=== PATIENT | female | born 1940 | race Caucasian/White ===

== ENCOUNTER 2022-09-01 21:10 | Inpatient (IN) | payer OTHER ==
[~2022-09-01] VITALS: Ht 157.5 cm; Wt 54.4 kg
[2022-09-01 21:19] VITALS: BP 133/46
--- NOTE | 2022-09-01 21:20 | NUR ---
PT BROUGHT TO BED 6 VIA VANDANA RICHARDSON
--- NOTE | 2022-09-01 21:30 | NUR ---
82 Y/O F PRESENTS WITH AN MECHANICAL FALL FROM HOME. [facility] STATED PT'S POWER OF ARABIC TEACHER REQUESTED FOR PT TO BE BROUGHT IN. PT DENIES ANY PAIN AT THE MOMENT OR NVD. PT'S GRANDDAUGHTER IS PRESENT UPON ARRIVAL AND STATED THE PT SUFFERS FROM ALZHIEMERS AND IT WORSENS AT NIGHT. PT IS A&OX3, SKIN INTACT, NO WOUNDS. PMH-ALZHIEMERS NKA
[2022-09-01] MEDS ORDERED: ACETAMINOPHEN EXTRA STRENGTH 500 MG TAB PO ONE (22:10)
--- NOTE | 2022-09-01 22:17 | NUR ---
lab at bedside
[2022-09-01 22:32] LABS: BASOPHILS % (AUTO) 0.3 % (0.0-2.0); HEMATOCRIT 33.3 % (36-48); HEMOGLOBIN 11.1 g/dL (12.0-16.0); LYMPHOCYTES # (AUTO) 0.5 K/uL (2.5-16.5); MEAN CORPUSCULAR HEMOGLOBIN 30 pg (27-31); MEAN CORPUSCULAR HGB CONC 33 g/dL (33-37); MEAN CORPUSCULAR VOLUME 88.9 fL (80-94); MONOCYTES # (AUTO) 0.6 K/uL (0.8-1.0); MONOCYTES % (AUTO) 6.2 % (1.7-9.3); NEUTROPHILS # (AUTO) 8.1 K/uL (1.8-7.7); NEUTROPHILS % (AUTO) 88.5 % (42.2-75.2); PLATELET COUNT (AUTO) 167 K/uL (140-450); RED BLOOD CELL COUNT(AUTO) 3.75 MIL/uL (4.20-5.40); RED CELL DISTRIBUTION WIDTH 15.4 % (11.6-13.7); WHITE BLOOD COUNT (AUTO) 9.2 K/uL (4.8-10.8)
--- NOTE | 2022-09-01 22:36 | NUR ---
Xray at bedside
[2022-09-01 22:51] LABS: ALBUMIN 3.9 g/dL (3.4-5.0); ANION GAP 14.8 (8-16); ASPARTATE AMINOTRANSFERASE 18 U/L (15-37); CARBON DIOXIDE 23.4 mmol/L (21-32); CHLORIDE 105 mmol/L (98-107); CREATININE 1.3 mg/dL (0.6-1.3); GLUCOSE 200 mg/dL (74-106); POTASSIUM 4.2 mmol/L (3.5-5.1); SODIUM SERUM 139 mmol/L (136-145); TOTAL BILIRUBIN 0.5 mg/dL (0.0-1.0); UREA NITROGEN, BLOOD 23 mg/dL (7-18)
[2022-09-01] MEDS ORDERED: NACL 0.9% 1,700 ML IV ONE (23:00)
--- NOTE | 2022-09-01 23:33 | NUR ---
UA COLLECTED AND SENT TO LAB
[2022-09-01 23:46] LABS: APPEARANCE,URINE CLEAR (CLEAR); BILIRUBIN,URINE NEGATIVE (NEGATIVE); BLOOD, URINE 2+ (NEGATIVE); COLOR,URINE YELLOW (YELLOW); LEUKOCYTE ESTERASE ,URINE 1+ (NEGATIVE); NITRITE, URINE POSITIVE (NEGATIVE); PH,URINE 5.5 (5.0-9.0); UGLUCOSE TRACE (NEGATIVE)
[2022-09-01 23:58] LABS: RBC,URINE 0-5 /HPF (0-5); WBC,URINE 0-5 /HPF (0-5)
[2022-09-02] MEDS ORDERED: cefTRIAXone 1,000 MG VIAL ONE (00:07)
--- NOTE | 2022-09-02 00:10 | NUR ---
DR. Soto AT BEDSIDE
[2022-09-02] MEDS ORDERED: PRAV20TA5 PO (01:00)
--- NOTE | 2022-09-02 01:01 | NUR ---
SAVANNA COLLECTED AND SENT TO LAB
--- NOTE | 2022-09-02 01:01 | NUR ---
PT AWAITING ADMISSION AND ON LEATHER CRAFTER
[2022-09-02] MEDS ORDERED: POTASSIUM CHLORIDE 10 MEQ TABER PO PRN (01:05)
[2022-09-02] MEDS ORDERED: MAGNESIUM OXIDE 400 MG TAB PO PRN (01:05)
[2022-09-02] MEDS ORDERED: ACETAMINOPHEN 325 MG TAB PO PRN (01:05)
[2022-09-02] MEDS ORDERED: ONDANSETRON 4 MG/2 ML VIAL IVP PRN (01:05)
[2022-09-02] MEDS ORDERED: HYDROcodone/APAP 5/325 MG 1 TAB TAB PO PRN (01:05)
[2022-09-02] MEDS ORDERED: MORPHINE SULFATE 4 MG/ML SYR IVP PRN (01:05)
[2022-09-02] MEDS: NACL 0.9% 1,000 ML IV SCH ×2 (02:19→13:35)
--- NOTE | 2022-09-02 03:00 | NUR ---
PT AMBULATORY TO RESTROOM WITH WHEELCHAIR ASSISTANCE
--- NOTE | 2022-09-02 03:13 | NUR ---
PT BACK TO ROOM AND ON OVEN HEATER
--- NOTE | 2022-09-02 05:40 | NUR ---
pt resting in room and on school bus monitor
--- NOTE | 2022-09-02 06:36 | NUR ---
GRANDDAUGHTER HAS BEEN BEDSIDE UPON ARRIVAL WHO IS ALSO HER CAREGIVER
--- NOTE | 2022-09-02 07:22 | NUR ---
Report recieved from GALLO Monsalve for transfer of care.
--- NOTE | 2022-09-02 07:52 | NUR ---
Patient will be admitted to care of Dr. Thompson. Admited to Telemetry. Will go to room 108A. Belongings list completed. Report to ANDRIA Person.
--- NOTE | 2022-09-02 08:16 | NUR ---
RECIEVED PATIENT FROM ER NURSE.ADMITTED TO BED NO 108 A.VITALS TEMP 97.7/ MA 89/ BP 133/71.SAT 98%.CALL LIGHT WITHIN REACH.ALL SAFETY MEASURES IN PLACE.ON NS 80 ML/HR.POC DISCUSSED.WILL CONTINUE TO MONITOR.
--- NOTE | 2022-09-02 09:09 | NUR ---
PATIENT HAS BEEN SCREENED AND CATEGORIZED MODERATE NUTRITION RISK. PATIENT WILL BE SEEN WITHIN 3-5 DAYS OF ADMISSION. REVIEWED BY DIOR YUSUF RD
[2022-09-02 12:00] VITALS: BP 135/54
[2022-09-02 16:00] VITALS: BP 138/63
--- NOTE | 2022-09-02 17:31 | NUR ---
P.T. NOTES P.T. EVAL COMPLETED; REFER TO EVAL FOR DETAILS.
--- NOTE | 2022-09-02 19:10 | NUR ---
RECEIVED PATIENT LYING ON THE BED, FAMILY AT BEDSIDE, NO SIGNS OF DISTRESS NOTED, NO SIGNS OF PAIN NOTED. IV ACCESS ON LEFT ARM, G22, INTACT, RUNNING NS @80ML/HR. PATIENT ASSISTED TO THE COMMODE. ALL SAFETY MEASURES IN PLACE.
--- NOTE | 2022-09-02 19:30 | NUR ---
ENDORSED THE PATIENT TO CORPORATE TREASURER NURSE FOR CONTINUITY OF CARE.
[2022-09-02 20:00] VITALS: BP 120/49
--- NOTE | 2022-09-02 20:40 | NUR ---
SCHEDULED MEDICATIONS GIVEN ORDERED.
--- NOTE | 2022-09-02 22:31 | NUR ---
TEMP RECHECKED 98.5, PATIENT WAS GIVEN PRN TYLENOL @2038 FOR TEMP OF 100.3. PATIENT IS AWAKE, NO SIGNS OF DISTRESS, NO SIGNS OF PAIN NOTED. CALL LIGHT WITHIN REACH.
[2022-09-03] VITALS: BP 125/60
--- NOTE | 2022-09-03 00:20 | NUR ---
SCHEDULED IV ANTIBIOTIC GIVEN ORDERED.
[2022-09-03] MEDS: NACL 0.9% 1,000 ML IV SCH ×2 (02:05→06:04)
[2022-09-03 04:00] VITALS: BP 132/56
--- NOTE | 2022-09-03 07:21 | NUR ---
ENDORSED PATIENT TO DAY NURSE FOR CONTINUITY OF CARE. NEEDS MET THROUGHOUT THE SHIFT. PATIENT IN STABLE CONDITION.
[2022-09-03 07:29] LABS: BASOPHILS % (AUTO) 0.3 % (0.0-2.0); EOSINOPHILS % (AUTO) 0.1 % (0.0-4.0); HEMATOCRIT 28.7 % (36-48); HEMOGLOBIN 9.7 g/dL (12.0-16.0); LYMPHOCYTES # (AUTO) 0.8 K/uL (2.5-16.5); LYMPHOCYTES % (AUTO) 15.2 % (20.5-51.1); MEAN CORPUSCULAR HEMOGLOBIN 30 pg (27-31); MEAN CORPUSCULAR HGB CONC 34 g/dL (33-37); MEAN CORPUSCULAR VOLUME 88.5 fL (80-94); MONOCYTES # (AUTO) 0.5 K/uL (0.8-1.0); MONOCYTES % (AUTO) 9.7 % (1.7-9.3); NEUTROPHILS # (AUTO) 3.9 K/uL (1.8-7.7); NEUTROPHILS % (AUTO) 74.7 % (42.2-75.2); PLATELET COUNT (AUTO) 126 K/uL (140-450); RED BLOOD CELL COUNT(AUTO) 3.25 MIL/uL (4.20-5.40); RED CELL DISTRIBUTION WIDTH 15.5 % (11.6-13.7); WHITE BLOOD COUNT (AUTO) 5.2 K/uL (4.8-10.8)
--- NOTE | 2022-09-03 07:34 | NUR ---
RECIEVED PATIENT FROM [employer]OUND COATING MACHINE OFFBEARER NURSE.PATIENT IS VERBALLY ACTIVE. NO SIGNS OF DISTRESSS NOTED.CALL LIGHT WITHIN REACH.WILL CONTINUE TO MONITOR.
[2022-09-03 07:46] LABS: CARBON DIOXIDE 21.6 mmol/L (21-32); CHLORIDE 109 mmol/L (98-107); CREATININE 0.9 mg/dL (0.6-1.3); GLUCOSE 90 mg/dL (74-106); POTASSIUM 3.6 mmol/L (3.5-5.1); SODIUM SERUM 139 mmol/L (136-145); UREA NITROGEN, BLOOD 14 mg/dL (7-18)
[2022-09-03] MEDS ORDERED: CALCIUM GLUC 1 GM/50 mL NS BAG 100 ML IV SCH (13:00)
[2022-09-03] MEDS ORDERED: CEPH-588 PO (13:11)
[2022-09-03 15:17] VITALS: BP 132/56
[2022-09-03 15:23] VITALS: BP 132/56
--- NOTE | 2022-09-03 15:39 | NUR ---
DC PLANNING ASSESSMENT COMPLETE PLEASE REFER TO ASSESSMENT FOR DETAILS SAVANAH PTS DAUGHTER REPORTS DC PLAN IS TO RETURN HOME WITH FAMILY PROVIDING TRANSPORTATION, WHEN MEDICALLY STABLE. Addendum: 09/03/22 at 1539 by Gabriela DICK Amended: Links added.
--- NOTE | 2022-09-03 17:30 | NUR ---
DISCHARGED THE PATIENT HOME PER MD ORDERS ID BAND REMOVED,TELEMONITORS REMOVED.IV LINE REMOVED.DISCHARGE INSTRUCTIONS GIVEN .HANDED OVER DISCHARGE PACKETS.
== END 2022-09-03 18:00 | disposition home or self-care (01) | DRG 872 ==
LOC: MED 21:10 → OBSVTOIN 09-02 01:05 → MTU 09-02 01:05 → OBSVTOIN 09-02 16:14 → INTOOBSV 09-02 16:14
PROVIDERS: ADMIT Student in an Organized Health Care Education/Training Program; ATTEND Student in an Organized Health Care Education/Training Program
DX: A41.9 Sepsis, unspecified organism (principal); N39.0 Urinary tract infection, site not specified; E78.5 Hyperlipidemia, unspecified; F03.90 Unspecified dementia, unspecified severity, without behavioral disturbance, psychotic disturbance, mood disturbance, and anxiety; Z20.822 Contact with and (suspected) exposure to COVID-19
CPT/HCPCS: 36415; 71045; 73562; 80048; 80053; 81001; 83605; 85025; 87040; 87081; 87086; 96361; 96365; 97112; 97116; 97530; 99291; J0610; J0696; J1644; J7060; Q0092

== ENCOUNTER 2022-10-06 13:09 | Emergency (ER) | payer OTHER ==
[~2022-10-06] VITALS: Ht 154.9 cm; Wt 54.4 kg
[~2022-10-06 13:09] MED LIST: CEPH-588 PO; PRAV20TA5 PO
[2022-10-06 13:19] VITALS: BP 139/72
--- NOTE | 2022-10-06 13:22 | NUR ---
Patient ambulated to bed 06 accompanied by caregiver
--- NOTE | 2022-10-06 13:46 | NUR ---
Dr. Garcia evaluating patient at bedside
--- NOTE | 2022-10-06 13:48 | NUR ---
82 y/o F BIB self from family for nose abrasion and left forehead hematoma s/p fall 1 hour ago. Per granddaughter, patient experienced unwitnessed fall with unknown LOC. Patient A&Ox1 to name/, reports taking out trash and fell down hitting her face onto concrete. Patient acting appropriately per family. Nose abrasion tender to palpation. Denies blood thinners, head/neck/back pain, blurry vision, dizziness, headache. Abrasion noted to nose and hematoma to left forehead. Bed locked in lowest position, side rails x 1. PMH: dementia, breast cancer, HLD, Alzheimers Meds: pravastatin sodium NKDA
--- NOTE | 2022-10-06 13:54 | NUR ---
Patient ambulated to restroom accompanied by great granddaughter.
--- NOTE | 2022-10-06 13:55 | NUR ---
Patient to CT via [facility]
--- NOTE | 2022-10-06 14:11 | NUR ---
Patient returned to CT. Pt placed onto night monitor. Bed locked in lowest position, side rails x 2 for patient safety. Alfredo rodriguez remains at bedside.
--- NOTE | 2022-10-06 14:20 | NUR ---
Lab at bedside
[2022-10-06 14:26] LABS: APPEARANCE,URINE CLEAR (CLEAR); BILIRUBIN,URINE NEGATIVE (NEGATIVE); BLOOD, URINE 1+ (NEGATIVE); COLOR,URINE YELLOW (YELLOW); LEUKOCYTE ESTERASE ,URINE TRACE (NEGATIVE); NITRITE, URINE NEGATIVE (NEGATIVE); UGLUCOSE NEGATIVE (NEGATIVE)
[2022-10-06 14:45] LABS: BASOPHILS # (AUTO) 0.1 K/uL (0.00-0.22); BASOPHILS % (AUTO) 0.8 % (0.0-2.0); EOSINOPHILS # (AUTO) 0.1 K/uL (0-0.4); EOSINOPHILS % (AUTO) 0.7 % (0.0-4.0); HEMATOCRIT 35.2 % (36-48); HEMOGLOBIN 11.6 g/dL (12.0-16.0); LYMPHOCYTES # (AUTO) 1.8 K/uL (2.5-16.5); LYMPHOCYTES % (AUTO) 23.2 % (20.5-51.1); MEAN CORPUSCULAR HEMOGLOBIN 30 pg (27-31); MEAN CORPUSCULAR HGB CONC 33 g/dL (33-37); MEAN CORPUSCULAR VOLUME 89.5 fL (80-94); MONOCYTES # (AUTO) 0.4 K/uL (0.8-1.0); MONOCYTES % (AUTO) 5.6 % (1.7-9.3); NEUTROPHILS # (AUTO) 5.5 K/uL (1.8-7.7); NEUTROPHILS % (AUTO) 69.7 % (42.2-75.2); PLATELET COUNT (AUTO) 109 K/uL (140-450); RED BLOOD CELL COUNT(AUTO) 3.93 MIL/uL (4.20-5.40); RED CELL DISTRIBUTION WIDTH 15.8 % (11.6-13.7); WHITE BLOOD COUNT (AUTO) 7.9 K/uL (4.8-10.8)
[2022-10-06 15:15] LABS: ALBUMIN 3.5 g/dL (3.4-5.0); ASPARTATE AMINOTRANSFERASE 20 U/L (15-37); CARBON DIOXIDE 25.9 mmol/L (21-32); CHLORIDE 106 mmol/L (98-107); CREATININE 1.3 mg/dL (0.6-1.3); GLUCOSE 127 mg/dL (74-106); POTASSIUM 3.9 mmol/L (3.5-5.1); SODIUM SERUM 142 mmol/L (136-145); TOTAL BILIRUBIN 0.4 mg/dL (0.0-1.0); UREA NITROGEN, BLOOD 19 mg/dL (7-18)
--- NOTE | 2022-10-06 15:25 | NUR ---
Patient resting in semi-fowlers position in position of comfort. residential monitor in place. Respirations even/unlabored, no acute distress noted. Daughter remains at bedside. Bed locked in lowest position, side rails x 1.
--- NOTE | 2022-10-06 15:28 | NUR ---
Dr. Garcia reevaluating patient at bedside
--- NOTE | 2022-10-06 15:35 | NUR ---
Dr. Garcia at bedside for wound irrigation and dermabond application.
[2022-10-06] MEDS ORDERED: CEPH-588 PO (15:37)
[2022-10-06 15:55] VITALS: BP 147/58
--- NOTE | 2022-10-06 15:57 | NUR ---
Patient discharged with v/s stable. Written and verbal after care instructions given and explained for Tissue Adhesive Wound Care. Patient alert, oriented and verbalized understanding of instructions. Ambulatory with by caregiver. All questions addressed prior to discharge. ID band removed. Patient advised to follow up with PMD. Rx of Keflex given. Patient educated on indication of medication including possible reaction and side effects. Opportunity to ask questions provided and answered. Copies of CT Head, CT Cervical Spine, UA, CBC/CMP/Troponin given to patient's daughter at bedside.
== END 2022-10-06 15:57 | disposition home or self-care (01) ==
LOC: MED 13:09
DX: S02.2XXA Fracture of nasal bones, initial encounter for closed fracture (principal); N39.0 Urinary tract infection, site not specified; E78.5 Hyperlipidemia, unspecified; G30.9 Alzheimer's disease, unspecified; F02.80 Dementia in other diseases classified elsewhere, unspecified severity, without behavioral disturbance, psychotic disturbance, mood disturbance, and anxiety; Z79.899 Other long term (current) drug therapy; Z79.2 Long term (current) use of antibiotics; W01.0XXA Fall on same level from slipping, tripping and stumbling without subsequent striking against object, initial encounter; Y93.01 Activity, walking, marching and hiking; Y92.89 Other specified places as the place of occurrence of the external cause; Y99.8 Other external cause status
CPT/HCPCS: 36415; 70450; 72125; 80053; 81001; 84484; 85025; 87086; 93005; 99285

== ENCOUNTER 2022-10-08 13:00 | Emergency (ER) | payer OTHER ==
[~2022-10-08] VITALS: Ht 152.4 cm; Wt 50.3 kg
[2022-10-08 13:09] VITALS: BP 136/63
--- NOTE | 2022-10-08 13:20 | NUR ---
82 Y/O FEMALE BIB DAUGHTER PRESENTS TO ED FOR RECHECK FOR DERMABOND ON THE NOSE, FALL 2 DAYS AGO. NO INCREASED REDNESS, NO FEVER, CHILLS NKA PMH; ALZHEIMERS, BREAST CA, MASTECTOMY ON LEFT
--- NOTE | 2022-10-08 13:49 | NUR ---
Patient discharged with v/s stable. Written and verbal after care instructions ABOUT TISSUE ADHESIVE WOUND CARE given and explained. Patient verbalized understanding. Ambulatory with steady gait. All questions addressed prior to discharge. Advised to follow up with PMD.
== END 2022-10-08 13:49 | disposition home or self-care (01) ==
LOC: MED 13:00
DX: S01.21XD Laceration without foreign body of nose, subsequent encounter (principal); Z48.00 Encounter for change or removal of nonsurgical wound dressing; W18.30XD Fall on same level, unspecified, subsequent encounter
CPT/HCPCS: 99281

== ENCOUNTER 2023-10-27 12:42 | Emergency (ER) | payer OTHER ==
[~2023-10-27] VITALS: Ht 154.9 cm; Wt 43.1 kg
[2023-10-27 12:51] VITALS: BP 148/78; PULSE 87; RESP 16; TEMP 97.1; O2SAT 96
[2023-10-27 13:31] VITALS: BP 148/58; PULSE 78; RESP 16; TEMP 97.1; O2SAT 100
== END 2023-10-27 13:43 | disposition home or self-care (01) ==
LOC: MED 12:42
DX: R60.0 Localized edema (principal); I10 Essential (primary) hypertension; F03.90 Unspecified dementia, unspecified severity, without behavioral disturbance, psychotic disturbance, mood disturbance, and anxiety; Z85.9 Personal history of malignant neoplasm, unspecified; Z79.899 Other long term (current) drug therapy
CPT/HCPCS: 81002; 99282